=== PATIENT | female | born 1945 | race Caucasian/White ===

== ENCOUNTER 2019-04-20 11:22 | Emergency (ER) | payer MEDICARE ==
[~2019-04-20] VITALS: Ht 167.6 cm; Wt 134.2 kg
[2019-04-20 12:14] LABS: BASO % 0 % (0-3); EOS % 0 % (0-3); HEMOGLOBIN 11.2 g/dL (12.0-15.5); LYMPH # 0.8 x10^3/uL (1.0-4.8); LYMPH % 6 % (24-48); MEAN CORPUSCULAR HEMOGLOBIN 30 pg (25-35); MEAN CORPUSCULAR HGB CONC 31 g/dL (31-37); MEAN CORPUSCULAR VOLUME 96 fL (79-100); MONO # 0.9 x10^3/uL (0.0-1.1); MONO % 7 % (0-9); NEUT # 11.3 x10^3uL (1.8-7.7); NEUT % 86 % (31-73); PLATELET COUNT 316 x10^3/uL (140-400); RED BLOOD COUNT 3.75 x10^6/uL (3.50-5.40); RED CELL DISTRIBUTION WIDTH 14.9 % (11.5-14.5); WHITE BLOOD COUNT 13.1 x10^3/uL (4.0-11.0)
[2019-04-20] MEDS ORDERED: DEXAMETHASONE SOD PHOS 10 MG/ML VIAL IV ONE (12:15)
--- NOTE | 2019-04-20 12:16 | EKG ---
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
[2019-04-20 12:37] LABS: ALBUMIN 3.1 g/dL (3.4-5.0); ALBUMIN/GLOBULIN RATIO 0.7 (1.0-1.7); C REACTIVE PROTEIN 222.6 mg/L (0-3.3); CALCIUM 9.6 mg/dL (8.5-10.1); CREATININE 1.1 mg/dL (0.6-1.0); GFR 48.7; MAGNESIUM 1.9 mg/dL (1.8-2.4); POTASSIUM 3.3 mmol/L (3.5-5.1); TOTAL PROTEIN 7.4 g/dL (6.4-8.2)
--- NOTE | 2019-04-20 12:56 | RAD ---
Left lower extremity venous doppler ultrasound History: Left lower extremity pain and swelling Comparison: None Findings: Multiple grayscale, color, and duplex spectral analysis sonographic images were acquired of the left lower extremity veins to evaluate for the presence of DVT. There is normal phasicity. Normal compression, color-flow, and augmentation is demonstrated from the left common femoral to the popliteal veins. There is normal color flow of the proximal greater saphenous and profunda femoris veins. Left calf veins are not well-visualized on this exam reportedly due to patient's body habitus. There is a hypoechoic fluid collection in the left popliteal fossa about 4.3 x 2 x 3 cm. Impression: 1. There is no evidence of deep venous thrombosis from the left common femoral to the popliteal veins. 2. There is left popliteal fossa fluid collection/cyst. Electronically signed by: Sadi Hernández MD (04/20/2019 12:54 PM) [facility]
--- NOTE | 2019-04-20 13:08 | PHYS DOC ---
Past History Past Medical History: A-Fib, Arthritis, COPD, GERD, Hypertension, Other Past Surgical History: , Hysterectomy, Other Additional Past Surgical Histo: D&C; left elbow fx repair; left eye cataract Smoking: Quit Greater Than 1 Year Alcohol Use: None Drug Use: None Adult General Chief Complaint Chief Complaint: KNEE SWELLING HPI HPI 73-year-old female presents with report of left knee pain and swelling which is been ongoing for the past several days. Patient reports she was recently seen at [place] for same and was diagnosed with arthritis. Patient reports she's been taking hydrocodone for pain with some improvement. Reports today pain became worse. Patient reports she also had been noted to have a elevated INR at her previous visit. Patient reports she has been holding her Coumadin since. Reports she currently takes it secondary to atrial fibrillation. Patient reports she was seen by her PCP who is concerned about her elevated INR, continued pain to left knee, and low oxygenation at the office and therefore requested patient presented to the ER for further evaluation. Patient denies recent trauma. Denies fever or chills. Denies shortness of breath or chest pain. Review of Systems Review of Systems Constitutional: Denies fever or chills Eyes: Denies redness or eye pain HENT: Denies nasal congestion or sore throat Respiratory: Denies cough or shortness of breath Cardiovascular: Denies chest pain or palpitations GI: Denies abdominal pain, nausea, or vomiting : Denies dysuria or hematuria Musculoskeletal: Reports pain and swelling to left knee Integument: Denies rash or skin lesions Neurologic: Denies headache, focal weakness or sensory changes Complete systems were reviewed and found to be within normal limits, except as documented in this note. Current Medications Current Medications Current Medications Medications (Trade) Dose Ordered Sig/[facility] Start Time Stop Time Status Last Admin Dose Admin Dexamethasone Sodium Phosphate (Decadron) 10 mg 1X ONCE 04/20/19 12:15 04/20/19 12:16 DC 04/20/19 12:06 10 MG Fentanyl Citrate (Fentanyl 2ml Vial) 50 mcg 1X ONCE 04/20/19 12:15 04/20/19 12:16 DC 04/20/19 12:08 50 MCG Allergies Allergies Allergies Coded Allergies Type Severity Reaction Last Updated Verified No Known Drug Allergies 04/20/19 No Physical Exam Physical Exam Constitutional: Well developed, obese, uncomfortable, non-toxic appearance HENT: Normocephalic, atraumatic, oropharynx moist Eyes: PERRL, EOMI, conjunctiva normal, no discharge Neck: Normal range of motion, no tenderness, supple Cardiovascular: Heart rate normal, regular rhythm Lungs & Thorax: Bilateral breath sounds clear to auscultation, no wheezing Skin: Warm, dry, no erythema, no rash Extremities: Left knee tenderness on palpation and range of motion, no deformity, bilateral 1+ edema Neurologic: Alert and oriented X 3, no focal deficits noted Psychologic: Affect normal, judgement normal Current Patient Data Vital Signs Vital Signs Date Time Temp Pulse Resp B/P (MAP) Pulse Ox O2 Delivery O2 Flow Rate FiO2 04/20/19 12:17 81 17 144/75 (98) 97 Nasal Cannula 3.0 04/20/19 11:39 98.2 Lab Results Laboratory Tests Test 04/20/19 11:58 White Blood Count 13.1 x10^3/uL (4.0-11.0) H Red Blood Count 3.75 x10^6/uL (3.50-5.40) Hemoglobin 11.2 g/dL (12.0-15.5) L Hematocrit 36.0 % (36.0-47.0) Mean Corpuscular Volume 96 fL (79-100) Mean Corpuscular Hemoglobin 30 pg (25-35) Mean Corpuscular Hemoglobin Concent 31 g/dL (31-37) Red Cell Distribution Width 14.9 % (11.5-14.5) H Platelet Count 316 x10^3/uL (140-400) Neutrophils (%) (Auto) 86 % (31-73) H Lymphocytes (%) (Auto) 6 % (24-48) L Monocytes (%) (Auto) 7 % (0-9) Eosinophils (%) (Auto) 0 % (0-3) Basophils (%) (Auto) 0 % (0-3) Neutrophils # (Auto) 11.3 x10^3uL (1.8-7.7) H Lymphocytes # (Auto) 0.8 x10^3/uL (1.0-4.8) L Monocytes # (Auto) 0.9 x10^3/uL (0.0-1.1) Eosinophils # (Auto) 0.0 x10^3/uL (0.0-0.7) Basophils # (Auto) 0.0 x10^3/uL (0.0-0.2) Erythrocyte Sedimentation Rate Pending Prothrombin Time 35.1 SEC (9.4-11.4) H Prothrombin Time INR 3.4 (0.9-1.1) H Activated Partial Thromboplast Time 58 SEC (23-33) H D-Dimer (Jordyn) 0.60 mg/L (0.00-0.50) H Sodium Level 143 mmol/L (136-145) Potassium Level 3.3 mmol/L (3.5-5.1) L Chloride Level 100 mmol/L (98-107) Carbon Dioxide Level 36 mmol/L (21-32) H Anion Gap 7 (6-14) Blood Urea Nitrogen 21 mg/dL (7-20) H Creatinine 1.1 mg/dL (0.6-1.0) H Estimated GFR (Cockcroft-Gault) 48.7 BUN/Creatinine Ratio 19 (6-20) Glucose Level 126 mg/dL (70-99) H Calcium Level 9.6 mg/dL (8.5-10.1) Magnesium Level 1.9 mg/dL (1.8-2.4) Total Bilirubin 2.0 mg/dL (0.2-1.0) H Aspartate Amino Transferase (AST) 15 U/L (15-37) Alanine Aminotransferase (ALT) 12 U/L (14-59) L Alkaline Phosphatase 64 U/L (46-116) Creatine Kinase 41 U/L (26-192) Creatine Kinase MB (Mass) 0.7 ng/mL (0.0-3.6) Creatine Kinase MB Relative Index 1.7 % (0-4) Troponin I Quantitative < 0.017 ng/mL (0-0.055) C-Reactive Protein 222.6 mg/L (0-3.3) H HF-Mxb-X-Type Natriuretic Peptide 430 pg/mL (0-124) H Total Protein 7.4 g/dL (6.4-8.2) Albumin 3.1 g/dL (3.4-5.0) L Albumin/Globulin Ratio 0.7 (1.0-1.7) L EKG EKG @1211 NSR at 94bpm, wandering baseline with significant artifact, NO ST elevation, QRS 132ms, QT/QTc 342/433ms Radiology/Procedures Radiology/Procedures PROCEDURE: VENOUS LOWER EXTREMITY LEFT Left lower extremity venous doppler ultrasound History: Left lower extremity pain and swelling Comparison: None Findings: Multiple grayscale, color, and duplex spectral analysis sonographic images were acquired of the left lower extremity veins to evaluate for the presence of DVT. There is normal phasicity. Normal compression, color-flow, and augmentation is demonstrated from the left common femoral to the popliteal veins. There is normal color flow of the proximal greater saphenous and profunda femoris veins. Left calf veins are not well-visualized on this exam reportedly due to patient's body habitus. There is a hypoechoic fluid collection in the left popliteal fossa about 4.3 x 2 x 3 cm. Impression: 1. There is no evidence of deep venous thrombosis from the left common femoral to the popliteal veins. 2. There is left popliteal fossa fluid collection/cyst. Electronically signed by: Sadi Hernández MD (04/20/2019 12:54 PM) [facility] PROCEDURE: KNEE LEFT 3V Three-view left knee study Clinical indications: Left knee pain FINDINGS: No acute fracture or dislocation or lytic process is seen. There is severe joint space narrowing with [id number] interface and moderate subchondral sclerosis and mild spurring of the medial tibial femoral joint compartment. There is mild joint space narrowing and mild spurring of the lateral tibial femoral joint compartment. Chondrocalcinosis of the lateral meniscus is seen. There is mild degenerative spurring of the patellofemoral joint compartment. Evaluation for joint effusion is difficult since the lateral view is not truly lateral in position. IMPRESSION: No acute fracture. 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 Electronically signed by: Gama Davidson MD (04/20/2019 1:53 PM) [facility] PROCEDURE: CT ANGIOGRAPHY CHEST CT ANGIOGRAPHY CHEST INDICATION: Hypoxia, elevated d-dimer Comparison: None. TECHNIQUE: Following the uneventful administration of intravenous contrast, 75 cc Isovue-370, axial CT sections were obtained through the lungs and upper abdomen. Multiplanar reconstructions and MIP images were obtained. RS compliance statement: One or more of the following individualized dose reduction techniques were utilized for this examination: 1. Automated exposure control 2. Adjustment of the mA and/or kV according to patient size 3. Use of iterative reconstruction technique FINDINGS: Pulmonary vasculature: No evidence of pulmonary thromboembolic disease. Dilated pulmonary trunk measures 40 mm. Lungs and Airways: No pulmonary mass or consolidation. Scattered bandlike subsegmental atelectasis. Mosaic attenuation of the lung parenchyma. No abnormality of the central airways. Pleura: The pleural spaces are normal. Heart and Mediastinum: The visualized thyroid is normal in size and attenuation. No axillary or supraclavicular lymphadenopathy. No mediastinal, hilar or retrocrural lymphadenopathy. Cardiomegaly. No pericardial effusion. Coronary artery atherosclerotic disease. The great vessels of the thorax are normal. Abdomen: Cholelithiasis. Left renal cyst measuring 2.9 cm. Bones and Soft Tissues: The visualized bones and chest wall soft tissues are within normal limits. IMPRESSION: 1. No evidence of pulmonary thromboembolic disease. 2. Dilated pulmonary trunk, which can be seen with pulmonary hypertension. 3. Mosaic attenuation of the lung parenchyma, likely due to pulmonary hypertension or small airways disease. Electronically signed by: Sadi Boudreaux MD (04/20/2019 3:24 PM) [facility] Course & Med Decision Making Course & Med Decision Making Pertinent Labs and Imaging studies reviewed. (See chart for details) Obese female presents with report of left knee pain and swelling which is been ongoing for several days. Patient denies recent trauma. Reports had been seen recently at outside facility and been told she has significant arthritis of the knee. Patient reportedly also had had a elevated INR at that visit. PCP sent patient to the ED for further evaluation. Patient without deformity. X-ray obtained of knee which confirmed severe arthritis. Symptomatic treatment provided. Given patient's stature a venous Doppler was obtained which is negative for acute DVT but did note a Osborne cyst. Labs were also obtained and posted to chart. D-dimer elevated. CTA therefore obtained without acute process. Lonnie wrap applied to patient's left knee. Patient stable for discharge with outpatient follow-up with PCP/orthopedics. Orthopedic referral provided. Discussed findings and plan with patient and family, who acknowledge understanding and agreement. [place] Disclaimer Dragon Disclaimer This electronic medical record was generated, in whole or in part, using a voice recognition dictation system. Splinting Splinting : Location: left knee Pre-Made Type: Lonnie bandage Pre-Proc Neuro Vasc Exam: normal Post-Proc Neuro Vasc Exam: normal, unchanged from pre-exam Departure Departure: Impression: Primary Impression: Knee pain Additional Impression: Osteoarthritis Disposition: 01 HOME, SELF-CARE Condition: STABLE Referrals: BEN ANG MD (PCP) JO ANN MARQUES MD Patient Instructions: Knee Pain, [id number], Knee Wraps (Elastic Bandage) and RICE, Osteoarthritis Additional Instructions: Use your walker. Scripts Prednisone (PREDNISONE) 20 Mg Tablet 2 TAB PO DAILY for arthritis, #8 TAB Start this medication tomorrow, Saturday04/21/19 Prov: SHAHIDA WESLEY DO 04/20/19 Oxycodone Hcl/Acetaminophen (PERCOCET 5-325 MG TABLET ) 1 Each Tablet 0.5-1 TAB PO Q6HRS PRN for PAIN MDD 4 Tablet(s), #10 TAB 0 Refills Prov: SHAHIDA WESLEY DO 04/20/19 Problem Qualifiers Primary Impression: Knee pain Chronicity: acute Laterality: left Qualified Codes: M25.562 - Pain in left knee Additional Impression: Osteoarthritis Osteoarthritis location: knee Osteoarthritis type: unspecified Laterality: left Qualified Codes: M17.12 - Unilateral primary osteoarthritis, left knee SHAHIDA WESLEY DO Apr 20, 2019 13:08
[2019-04-20 13:25] LABS: SEDIMENTATION RATE 66 (0-25)
[2019-04-20] MEDS ORDERED: IV NORMAL SALINE 1,000ML 1,000 ML IV ONE (13:45)
--- NOTE | 2019-04-20 13:56 | RAD ---
Three-view left knee study Clinical indications: Left knee pain FINDINGS: No acute fracture or dislocation or lytic process is seen. There is severe joint space narrowing with [id number] interface and moderate subchondral sclerosis and mild spurring of the medial tibial femoral joint compartment. There is mild joint space narrowing and mild spurring of the lateral tibial femoral joint compartment. Chondrocalcinosis of the lateral meniscus is seen. There is mild degenerative spurring of the patellofemoral joint compartment. Evaluation for joint effusion is difficult since the lateral view is not truly lateral in position. IMPRESSION: No acute fracture. 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 Electronically signed by: Gama Davidson MD (04/20/2019 1:53 PM) [facility]
[2019-04-20] MEDS ORDERED: IOHEXOL 350 MG/ML 100 ML VIAL. IV ONE (14:00)
--- NOTE | 2019-04-20 16:41 | RAD ---
CT ANGIOGRAPHY CHEST INDICATION: Hypoxia, elevated d-dimer Comparison: None. TECHNIQUE: Following the uneventful administration of intravenous contrast, 75 cc Isovue-370, axial CT sections were obtained through the lungs and upper abdomen. Multiplanar reconstructions and MIP images were obtained. RS compliance statement: One or more of the following individualized dose reduction techniques were utilized for this examination: 1. Automated exposure control 2. Adjustment of the mA and/or kV according to patient size 3. Use of iterative reconstruction technique FINDINGS: Pulmonary vasculature: No evidence of pulmonary thromboembolic disease. Dilated pulmonary trunk measures 40 mm. Lungs and Airways: No pulmonary mass or consolidation. Scattered bandlike subsegmental atelectasis. Mosaic attenuation of the lung parenchyma. No abnormality of the central airways. Pleura: The pleural spaces are normal. Heart and Mediastinum: The visualized thyroid is normal in size and attenuation. No axillary or supraclavicular lymphadenopathy. No mediastinal, hilar or retrocrural lymphadenopathy. Cardiomegaly. No pericardial effusion. Coronary artery atherosclerotic disease. The great vessels of the thorax are normal. Abdomen: Cholelithiasis. Left renal cyst measuring 2.9 cm. Bones and Soft Tissues: The visualized bones and chest wall soft tissues are within normal limits. IMPRESSION: 1. No evidence of pulmonary thromboembolic disease. 2. Dilated pulmonary trunk, which can be seen with pulmonary hypertension. 3. Mosaic attenuation of the lung parenchyma, likely due to pulmonary hypertension or small airways disease. Electronically signed by: Sadi Boudreaux MD (04/20/2019 3:24 PM) [facility]
[2019-04-20] MEDS ORDERED: PRED20TA PO (17:12)
[2019-04-20] MEDS ORDERED: OXYC1TAB15 PO (17:12)
[2019-04-20 17:32] VITALS: BP 101/43
[2019-04-20] MEDS ORDERED: oxyCODONE/APAP 5/325 1 TAB TABLET PO ONE (17:45)
== END 2019-04-20 17:40 | disposition home or self-care (01) ==
LOC: ER 11:33
DX: M17.12 Unilateral primary osteoarthritis, left knee (principal); I48.91 Unspecified atrial fibrillation; R79.1 Abnormal coagulation profile; J44.9 Chronic obstructive pulmonary disease, unspecified; K21.9 Gastro-esophageal reflux disease without esophagitis; I10 Essential (primary) hypertension; Z87.891 Personal history of nicotine dependence
CPT/HCPCS: 36415; 71275; 73562; 80053; 82553; 83735; 83880; 84484; 85025; 85379; 85610; 85651; 85730; 86140; 93005; 93971; 96374; 96375; 96376; 99285; J1100; J3010; Q9967; J7030

== ENCOUNTER 2020-03-10 07:32 | Emergency (ER) | payer MEDICARE, OTHER ==
[~2020-03-10] VITALS: Ht 167.6 cm; Wt 134.2 kg
[~2020-03-10 07:32] MED LIST: OXYC1TAB15 PO; PRED20TA PO
[2020-03-10] MEDS ORDERED: DIPH,PERTUSS(ACELL),TET VAC/PF 0.5 ML SYRINGE. VAX IM ONE (07:45)
--- NOTE | 2020-03-10 07:49 | PHYS DOC ---
Past History Past Medical History: A-Fib, Arthritis, COPD, GERD, Hypertension, Other Past Surgical History: , Hysterectomy, Other Additional Past Surgical Histo: D&C; left elbow fx repair; left eye cataract Smoking: Quit Greater Than 1 Year Alcohol Use: None Drug Use: None Adult General Chief Complaint Chief Complaint: MECHANICAL FALL HPI HPI Patient is a 74-year-old female who presents status post fall. Patient had an unwitnessed mechanical fall at her assisted, states she was ambulating from bathroom back to living room area with her walker when she tripped over her feet falling forwards, hit her left knee, then subsequently hit face. senior living staff found patient shortly after fall and immediately called EMS for transport to our facility for evaluation. Per EMS report, patient alert and oriented, vitals grossly unremarkable, patient reporting facial pain at site of laceration above left orbit and right jaw only. Currently takes warfarin daily for anticoagulation for atrial fibrillation. Patient has history of falls in the past with most recent being 2 days ago, all are mechanical in nature due to chronic deconditioning and gross obesity when using her walker. Review of Systems Review of Systems Fourteen body systems of review of systems have been reviewed. See HPI for pertinent positives and negative responses, other ward all other systems are negative, non-pertinent or non-contributory Allergies Allergies Allergies Coded Allergies Type Severity Reaction Last Updated Verified No Known Drug Allergies 04/20/19 No Physical Exam Physical Exam Constitutional: Pt is oriented to person, place, and time. Pt appears well- developed and well-nourished. Obese HENT: Head: Normocephalic. Mouth/Throat: Oropharynx is clear and moist. No hematomas or abrasions to face or scalp. X2 lacerations were reported, x1 crescent-shaped laceration to left superior orbit above the eyebrow 3.5 cm without any obvious foreign body, x1 vertical incision noted to inferior lateral portion of chin 2 cm in length without obvious foreign body. Hemostasis achieved prior to arrival OP clear, no blood, no malocclusion, dentition intact Nares clear, no nasal septal hematoma TMs clear, no hemotympanum Midface stable Eyes: Conjunctivae and EOM are normal. Pupils are equal, round, and reactive to light. Neck: C-spine midline nontender, no step-offs Cardiovascular: Normal rate, irregular rhythm and normal heart sounds. Pulmonary/Chest: Effort normal and breath sounds normal. No respiratory distress. No wheezes. CTA bilaterally Abdominal: Soft. Bowel sounds are normal. Pt exhibits no distension. There is no tenderness. Musculoskeletal: Bony tenderness to left knee without any palpable abnormalities without any other bony tenderness past baseline health, no deformities, full ROM extremities Chest wall stable Pelvis stable and non-tender No vertebral TTP and spine without stepoffs Neurological: Pt is alert and oriented to person, place, and time. Moving all extremities willfully, able to wiggle all fingers and toes Alert and oriented x 3 Sensation grossly intact Skin: Skin is warm and dry. No abrasions, no lacerations Psychiatric: Behavior is appropriate for situation Nursing note and vitals reviewed. EKG EKG EKG ordered and interpreted by myself at 0803 hrs. overall, a poor EKG due to artifact due to underlying patient tremor and movement throughout, at present appears as atrial fibrillation with ventricular rate at 94 bpm, prolonged QTC of 501 otherwise other intervals unmeasurable, no obvious acute ischemic findings, no STEMI. Radiology/Procedures Radiology/Procedures PROCEDURE: CT HEAD AND CERVICAL SPINE WO CT HEAD AND CERVICAL SPINE WO History: Reason: fall, chin and left orbit lac / Spl. Instructions: / History: . Pain. Comparison: None. Technique: Noncontrast CT imaging was performed of the head and cervical spine. Coronal and sagittal reconstructions were performed. Exposure: One or more of the following individualized dose reduction techniques were utilized for this examination: 1. Automated exposure control 2. Adjustment of the mA and/or kV according to patient size 3. Use of iterative reconstruction technique. Findings: Head CT: No intracranial hemorrhage. No mass effect. No hydrocephalus. Moderate foci of decreased attenuation within the hemispheric white matter, most often due to chronic microvascular ischemia. Chronic appearing right caudate head lacunar infarct. Left supraorbital soft tissue swelling and laceration with subcutaneous gas. Imaged orbits are unremarkable. Complete opacification of the left frontal sinus and left anterior ethmoid sinuses. Increased density within the opacified sinuses, may indicate inspissated secretions or fungal colonization. Bilateral inferior maxillary sinus mucous retention cysts or polyps. Mastoid air cells are clear. No acute calvarial fracture. Cervical spine CT: Mild motion degradation. Grade 1 anterolisthesis C3 on C4, C4 and C5 and C7 on T1. Normal vertebral body height. No fracture. Moderate multilevel degenerative disc changes most prominent C5-C6 and C6-C7. Multilevel facet arthropathy. Multilevel neuroforaminal narrowing. Mild canal narrowing C5-C6. Multinodular thyroid with largest right inferior thyroid nodule measuring 3.1 x 2.7 cm. Impression: Head CT: 1. No acute intracranial abnormality. 2. Left supraorbital scalp soft tissue injury. 3. Moderate sequelae of chronic microvascular ischemia. 4. Chronic appearing right caudate head lacunar infarct. Recommend comparison with prior imaging studies. If persistent clinical concern for acute ischemia, MRI can better evaluate. 5. Left frontal and ethmoid sinus opacification. Cervical spine CT: 1. No acute fracture or subluxation of the cervical spine. 2. Moderate multilevel cervical spondylosis. 3. Multinodular thyroid. Recommend ultrasound to further evaluate. Electronically signed by: Elie Contreras DO (03/10/2020 10:15 AM) [id number] PROCEDURE: KNEE LEFT 3V KNEE LEFT 3V History: Reason: fall / Spl. Instructions: / History: . Pain. Technique: 3 views left knee. Comparison: April 20, 2019 Findings: Normal alignment. No fracture. Tricompartment knee degenerative changes most advanced within the medial compartment. Chondrocalcinosis. Small knee joint effusion. Anterior knee soft tissue swelling. Impression: 1. No acute osseous abnormality. 2. 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 3. Chondrocalcinosis. Electronically signed by: Elie Contreras DO (03/10/2020 10:01 AM) [id number] Course & Med Decision Making Course & Med Decision Making Patient seen on immediate ER arrival from EMS ABCs grossly unremarkable, patient at baseline home oxygen requirements of 4 L nasal cannula Comprehensive history and physical exam obtained, subsequent diagnostic studies ordered IV access obtained, a total of 50 mcg fentanyl administered for pain, tetanus updated today as it is out of date X2 lacerations to left orbit and right chin repaired in ER without complications Diagnostic work-up reviewed in depth with patient. Discussed findings of supratherapeutic INR at 3.2 with goal 2.0-3.0. Also discussed imaging findings that were negative for any acute abnormality but did show multinodular thyroid I discussed that this might be an acute presentation of more concerning pathology such as future brain bleed. I discussed utility in medical observation for continued neuro checks; however, patient reports having good support at her current assisted facility Patient wanting to go home, at this time I feel this is safe as she is going back to assisted community with staff who can: Perform neuro checks and she has close access to PCP for follow-up within upcoming 3-5 days for repeat INR check, suture removal, and follow-up for outpatient thyroid ultrasound Strict return precautions were discussed with patient at length, all questions and concerns addressed prior to ER departure back to assisted in stable condition Dragon Disclaimer Dragon Disclaimer This electronic medical record was generated, in whole or in part, using a voice recognition dictation system. Laceration Repair Lac Repair Indication: Lacerations to left superior orbit and right inferior chin. Consent was obtained verbally from patient Procedure: The patient was placed in the appropriate position and x2 laceration sites were copiously irrigated with normal saline and cleansed with topical alcohol wipes. Each site was anesthetized with 4 mL 1% lidocaine. Each sites were evaluated extensively without any concern for deep muscle body/tendon/nerve involvement. Skin borders approximated. 3.0 Ethilon was used for closure of right chin laceration. 4.0 Ethilon was used for closure of left superior orbit laceration. X3 simple sutures were applied to right chin laceration and a total of x6 simple sutures were applied to left superior orbit laceration. Both wounds were then dressed per protocol. Total repaired wound length: First laceration to left superior orbit was cre scent-shaped totaling 3.5 cm in length. Second laceration to right inferior chin totaled 2 cm in laceration Other Items: None The patient tolerated the procedure well without any reported complications or noted complications Departure Departure: Impression: Primary Impression: Closed head injury without loss of consciousness Additional Impressions: Fall Laceration of head Supratherapeutic INR Atrial fibrillation Warfarin anticoagulation Anxiety Thyroid nodule Disposition: HOME/RESIDENCE PRIOR TO ADM Condition: STABLE Referrals: BEN ANG MD (PCP) Patient Instructions: Fall Prevention and Home Safety Justification of Admission: Justification of Admission: Justification of Admission Dx: N/A Problem Qualifiers TALIA ALEX DO Mar 10, 2020 07:49
--- NOTE | 2020-03-10 08:14 | EKG ---
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
[2020-03-10 08:34] LABS: BASO % 0 % (0-3); EOS # 0.2 x10^3/uL (0.0-0.7); EOS % 2 % (0-3); HEMATOCRIT 37.8 % (36.0-47.0); HEMOGLOBIN 11.9 g/dL (12.0-15.5); LYMPH % 12 % (24-48); MEAN CORPUSCULAR HEMOGLOBIN 31 pg (25-35); MEAN CORPUSCULAR HGB CONC 32 g/dL (31-37); MEAN CORPUSCULAR VOLUME 97 fL (79-100); MONO # 0.5 x10^3/uL (0.0-1.1); MONO % 6 % (0-9); NEUT # 6.9 x10^3uL (1.8-7.7); NEUT % 80 % (31-73); PLATELET COUNT 200 x10^3/uL (140-400); RED BLOOD COUNT 3.89 x10^6/uL (3.50-5.40); RED CELL DISTRIBUTION WIDTH 15.4 % (11.5-14.5); WHITE BLOOD COUNT 8.6 x10^3/uL (4.0-11.0)
[2020-03-10 08:48] LABS: CALCIUM 9.6 mg/dL (8.5-10.1); CREATININE 1.4 mg/dL (0.6-1.0); GFR 36.8; POTASSIUM 3.4 mmol/L (3.5-5.1)
[2020-03-10 08:53] LABS: ALBUMIN 2.9 g/dL (3.4-5.0); ALBUMIN/GLOBULIN RATIO 0.6 (1.0-1.7); TOTAL BILIRUBIN 0.9 mg/dL (0.2-1.0); TOTAL PROTEIN 7.4 g/dL (6.4-8.2)
[2020-03-10] MEDS ORDERED: busPIRone 5 MG TABLET. ONE (10:00)
--- NOTE | 2020-03-10 10:04 | RAD ---
KNEE LEFT 3V History: Reason: fall / Spl. Instructions: / History: . Pain. Technique: 3 views left knee. Comparison: April 20, 2019 Findings: Normal alignment. No fracture. Tricompartment knee degenerative changes most advanced within the medial compartment. Chondrocalcinosis. Small knee joint effusion. Anterior knee soft tissue swelling. Impression: 1. No acute osseous abnormality. 2. 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 3. Chondrocalcinosis. Electronically signed by: Elie Contreras DO (03/10/2020 10:01 AM) [id number]
[2020-03-10] MEDS ORDERED: busPIRone 5 MG TABLET. PO ONE (10:10)
--- NOTE | 2020-03-10 10:18 | RAD ---
CT HEAD AND CERVICAL SPINE WO History: Reason: fall, chin and left orbit lac / Spl. Instructions: / History: . Pain. Comparison: None. Technique: Noncontrast CT imaging was performed of the head and cervical spine. Coronal and sagittal reconstructions were performed. Exposure: One or more of the following individualized dose reduction techniques were utilized for this examination: 1. Automated exposure control 2. Adjustment of the mA and/or kV according to patient size 3. Use of iterative reconstruction technique. Findings: Head CT: No intracranial hemorrhage. No mass effect. No hydrocephalus. Moderate foci of decreased attenuation within the hemispheric white matter, most often due to chronic microvascular ischemia. Chronic appearing right caudate head lacunar infarct. Left supraorbital soft tissue swelling and laceration with subcutaneous gas. Imaged orbits are unremarkable. Complete opacification of the left frontal sinus and left anterior ethmoid sinuses. Increased density within the opacified sinuses, may indicate inspissated secretions or fungal colonization. Bilateral inferior maxillary sinus mucous retention cysts or polyps. Mastoid air cells are clear. No acute calvarial fracture. Cervical spine CT: Mild motion degradation. Grade 1 anterolisthesis C3 on C4, C4 and C5 and C7 on T1. Normal vertebral body height. No fracture. Moderate multilevel degenerative disc changes most prominent C5-C6 and C6-C7. Multilevel facet arthropathy. Multilevel neuroforaminal narrowing. Mild canal narrowing C5-C6. Multinodular thyroid with largest right inferior thyroid nodule measuring 3.1 x 2.7 cm. Impression: Head CT: 1. No acute intracranial abnormality. 2. Left supraorbital scalp soft tissue injury. 3. Moderate sequelae of chronic microvascular ischemia. 4. Chronic appearing right caudate head lacunar infarct. Recommend comparison with prior imaging studies. If persistent clinical concern for acute ischemia, MRI can better evaluate. 5. Left frontal and ethmoid sinus opacification. Cervical spine CT: 1. No acute fracture or subluxation of the cervical spine. 2. Moderate multilevel cervical spondylosis. 3. Multinodular thyroid. Recommend ultrasound to further evaluate. Electronically signed by: Elie Contreras DO (03/10/2020 10:15 AM) [id number]
[2020-03-10 10:55] VITALS: BP 116/62
== END 2020-03-10 11:27 | disposition home or self-care (01) ==
LOC: ER 07:32
DX: S05.42XA Penetrating wound of orbit with or without foreign body, left eye, initial encounter (principal); S01.81XA Laceration without foreign body of other part of head, initial encounter; S09.90XA Unspecified injury of head, initial encounter; I48.91 Unspecified atrial fibrillation; E04.1 Nontoxic single thyroid nodule; M19.90 Unspecified osteoarthritis, unspecified site; J44.9 Chronic obstructive pulmonary disease, unspecified; K21.9 Gastro-esophageal reflux disease without esophagitis; I10 Essential (primary) hypertension; Z87.891 Personal history of nicotine dependence; Z79.01 Long term (current) use of anticoagulants; W01.0XXA Fall on same level from slipping, tripping and stumbling without subsequent striking against object, initial encounter; Y93.01 Activity, walking, marching and hiking; Y92.89 Other specified places as the place of occurrence of the external cause; Y99.8 Other external cause status
CPT/HCPCS: 12013; 36415; 70450; 72125; 73562; 80053; 84443; 84484; 85025; 85610; 85730; 90471; 90715; 93005; 96374; 99285; J3010

== ENCOUNTER 2020-06-07 14:49 | Emergency (ER) | payer MEDICARE, OTHER ==
[~2020-06-07] VITALS: Ht 167.6 cm; Wt 134.2 kg
[2020-06-07] MEDS ORDERED: 0.9 % SODIUM CHLORIDE 10 ML DISP.SYRIN. IV PRN (15:00)
[2020-06-07] MEDS ORDERED: HALOPERIDOL LACT 5 MG/ML VIAL. IM ONE (15:00)
[2020-06-07] MEDS ORDERED: HALOPERIDOL LACT 5 MG/ML VIAL. ONE (15:01)
[2020-06-07] MEDS ORDERED: IV NORMAL SALINE 1,000ML 1,000 ML IV ONE (15:15)
[2020-06-07] MEDS ORDERED: IOHEXOL 350 MG/ML 100 ML VIAL. IV ONE (15:15)
[2020-06-07] MEDS ORDERED: ACETAMINOPHEN 650 MG SUPP.RECT. PR ONE (15:15)
[2020-06-07] MEDS ORDERED: IV NORMAL SALINE 100ML 100 ML ONE (15:22)
[2020-06-07 15:24] LABS: BASO # 0.1 x10^3/uL (0.0-0.2); BASO % 1 % (0-3); EOS % 0 % (0-3); HEMATOCRIT 39.7 % (36.0-47.0); HEMOGLOBIN 12.2 g/dL (12.0-15.5); LYMPH # 1.4 x10^3/uL (1.0-4.8); LYMPH % 8 % (24-48); MEAN CORPUSCULAR HEMOGLOBIN 30 pg (25-35); MEAN CORPUSCULAR HGB CONC 31 g/dL (31-37); MEAN CORPUSCULAR VOLUME 98 fL (79-100); MONO # 0.4 x10^3/uL (0.0-1.1); MONO % 2 % (0-9); NEUT # 14.4 x10^3uL (1.8-7.7); NEUT % 89 % (31-73); PLATELET COUNT 265 x10^3/uL (140-400); RED BLOOD COUNT 4.06 x10^6/uL (3.50-5.40); RED CELL DISTRIBUTION WIDTH 15.5 % (11.5-14.5); WHITE BLOOD COUNT 16.2 x10^3/uL (4.0-11.0)
[2020-06-07 15:32] LABS: CALCIUM 9.6 mg/dL (8.5-10.1); CREATININE 1.8 mg/dL (0.6-1.0); GFR 27.5; POTASSIUM 4.2 mmol/L (3.5-5.1)
[2020-06-07 15:39] LABS: ALBUMIN 3.3 g/dL (3.4-5.0); ALBUMIN/GLOBULIN RATIO 0.8 (1.0-1.7); TOTAL BILIRUBIN 1.2 mg/dL (0.2-1.0); TOTAL PROTEIN 7.6 g/dL (6.4-8.2)
--- NOTE | 2020-06-07 16:22 | RAD ---
Exam: CT head INDICATION: Hypoxia, tachycardia TECHNIQUE: Sequential axial images through the head were obtained without the administration of IV contrast. Comparisons: 03/10/2020 FINDINGS: No focal parenchymal lesion or hemorrhage is identified. There is no midline shift or sulcal effacement. Patchy hypodensity in the periventricular white matter, similar prior exam. No acute vascular territory infarction is identified. Martel-white distinction is preserved. The ventricular system is within normal limits without compression hydrocephalus. The basal cisterns are well maintained. The visualized portions of the paranasal sinuses and mastoid air cells are well-pneumatized. No acute fractures. IMPRESSION: No acute intracranial abnormality. Exposure: One or more of the following in the visualized dose reduction techniques were utilized for this examination: 1. Automated exposure control 2. Adjustment of the MA and/or KV according to patient size Use of iterative of reconstructive technique Electronically signed by: Sindy Thornton MD (06/07/2020 4:19 PM) KAYLEE
--- NOTE | 2020-06-07 16:26 | RAD ---
EXAM: Chest, single view. HISTORY: Shortness of breath. COMPARISON: 04/20/2019 FINDINGS: A frontal view of the chest is obtained. There is diffuse infiltrate with superimposed left lower lobe partial consolidation. There is cardiomegaly. There are enlarged central pulmonary vessels likely due to chronic pulmonary artery hypertension. No pleural effusion or pneumothorax is seen. IMPRESSION: Diffuse interstitial infiltrate with left lower lobe partial consolidation. Cardiomegaly and enlarged central pulmonary vessels due to suspected chronic pulmonary artery hypertension. Electronically signed by: Prisca Pena MD (06/07/2020 4:23 PM) [facility]
--- NOTE | 2020-06-07 16:27 | PHYS DOC ---
Past History Past Medical History: A-Fib, Arthritis, COPD, GERD, Hypertension, Other Past Surgical History: , Hysterectomy, Other Additional Past Surgical Histo: D&C; left elbow fx repair; left eye cataract Smoking: Quit Greater Than 1 Year Alcohol Use: None Drug Use: None Adult General Chief Complaint Chief Complaint: ALTERED MENTAL STATUS [facility] Patient is 74-year-old female with past medical history of COPD and atrial fibrillation who presents to the emergency room with altered mental status and hypoxia. According to EMS report patient has been going downhill for the last week that became altered around noon today. She typically is alert and oriented x4. She is unable to provide any history at this time. Review of Systems Review of Systems Complete ROS is negative unless otherwise documented in HPI Current Medications Current Medications Current Medications Medications (Trade) Dose Ordered Sig/Jessie Start Time Stop Time Status Last Admin Dose Admin Acetaminophen (Tylenol Supp) 650 mg 1X ONCE 06/07/20 15:15 06/07/20 15:16 DC 06/07/20 15:15 650 MG Ceftriaxone Sodium 2 gm/ Sodium Chloride 100 ml @ 200 mls/hr 1X ONCE 06/07/20 15:00 06/07/20 15:29 DC 06/07/20 15:00 200 MLS/HR Ceftriaxone Sodium (Rocephin) 2 gm STK-MED ONCE 06/07/20 15:22 06/07/20 15:22 DC Haloperidol Lactate (Haldol) 5 mg STK-MED ONCE 06/07/20 15:01 06/07/20 15:01 DC Iohexol (Omnipaque 350 Mg/ml) 100 ml 1X ONCE 06/07/20 15:15 06/07/20 15:16 DC Sodium Chloride 100 ml @ As Directed STK-MED ONCE 06/07/20 15:22 06/07/20 15:22 DC Sodium Chloride (Normal Saline Flush) 10 ml QSHIFT PRN 06/07/20 15:00 Allergies Allergies Allergies Coded Allergies Type Severity Reaction Last Updated Verified No Known Drug Allergies 04/20/19 No Physical Exam Physical Exam General: Awake, alert, toxic appearing, altered, rigors HEENT: Atraumatic, EOMI, PERRL, airway patent, dry oral mucosa Neck: Supple, trachea midline Respiratory: increased work of breathing, tachypneic, decreased breath sounds CV: tachycardic, no murmur, cap refill <2 GI: Soft, nondistended, nontender, no masses MSK: No obvious deformities Skin: Warm, multiple bruises, diaphoretic Neuro: A&O x1, speech NL, sensory and motor grossly intact, no focal deficits Psych: anxious Current Patient Data Vital Signs Vital Signs Date Time Temp Pulse Resp B/P (MAP) Pulse Ox O2 Delivery O2 Flow Rate FiO2 06/07/20 16:09 122 24 131/76 (94) 98 NonRebreather Mask 15.0 06/07/20 15:30 104.0 Lab Results Laboratory Tests Test 06/07/20 15:08 White Blood Count 16.2 x10^3/uL (4.0-11.0) H Red Blood Count 4.06 x10^6/uL (3.50-5.40) Hemoglobin 12.2 g/dL (12.0-15.5) Hematocrit 39.7 % (36.0-47.0) Mean Corpuscular Volume 98 fL (79-100) Mean Corpuscular Hemoglobin 30 pg (25-35) Mean Corpuscular Hemoglobin Concent 31 g/dL (31-37) Red Cell Distribution Width 15.5 % (11.5-14.5) H Platelet Count 265 x10^3/uL (140-400) Neutrophils (%) (Auto) 89 % (31-73) H Lymphocytes (%) (Auto) 8 % (24-48) L Monocytes (%) (Auto) 2 % (0-9) Eosinophils (%) (Auto) 0 % (0-3) Basophils (%) (Auto) 1 % (0-3) Neutrophils # (Auto) 14.4 x10^3uL (1.8-7.7) H Lymphocytes # (Auto) 1.4 x10^3/uL (1.0-4.8) Monocytes # (Auto) 0.4 x10^3/uL (0.0-1.1) Eosinophils # (Auto) 0.0 x10^3/uL (0.0-0.7) Basophils # (Auto) 0.1 x10^3/uL (0.0-0.2) Platelet Estimate Pending Sodium Level 138 mmol/L (136-145) Potassium Level 4.2 mmol/L (3.5-5.1) Chloride Level 97 mmol/L (98-107) L Carbon Dioxide Level 39 mmol/L (21-32) H Anion Gap 2 (6-14) L Blood Urea Nitrogen 21 mg/dL (7-20) H Creatinine 1.8 mg/dL (0.6-1.0) H Estimated GFR (Cockcroft-Gault) 27.5 BUN/Creatinine Ratio 12 (6-20) Glucose Level 191 mg/dL (70-99) H Lactic Acid Level 4.3 mmol/L (0.4-2.0) *H Calcium Level 9.6 mg/dL (8.5-10.1) Total Bilirubin 1.2 mg/dL (0.2-1.0) H Aspartate Amino Transferase (AST) 20 U/L (15-37) Alanine Aminotransferase (ALT) 15 U/L (14-59) Alkaline Phosphatase 122 U/L (46-116) H Creatine Kinase 49 U/L (26-192) Troponin I Quantitative 0.022 ng/mL (0-0.055) Total Protein 7.6 g/dL (6.4-8.2) Albumin 3.3 g/dL (3.4-5.0) L Albumin/Globulin Ratio 0.8 (1.0-1.7) L EKG EKG [] Radiology/Procedures Radiology/Procedures [] Heart Score Risk Factors: Risk Factors: DM, Current or recent (<one month) smoker, HTN, HLP, family history of CAD, obesity. Risk Scores: Risk Factors: DM, Current or recent (<one month) smoker, HTN, HLP, family history of CAD, obesity. Course & Med Decision Making Course & Med Decision Making Pertinent Labs and Imaging studies reviewed. (See chart for details) Patient presents to the ED c/o altered mental status.Upon arrival, patient meets SIRs criteria and their presentation is concerning for possible sepsis. Code sepsis was set off in triage. Sepsis work up including CBC, BMP, CXR, UA, blood cx were ordered. Patient was given antibiotics after cx were drawn. At this time patient does not show signs of shock. She does have an elevated lactic which is likely due from her significant hypoxia prior to arrival. At this time there is concern for coronavirus so we will be judicial with fluids. Patient was discussed with Dr. Tucker who will admit the patient to [place]. [place] Disclaimer Dragon Disclaimer This electronic medical record was generated, in whole or in part, using a voice recognition dictation system. Critical Care Note Comments Critical Care: Authorized and Performed by: Lenora Ambriz MD Total critical care time: approximately 60 minutes Due to a high probability of clinically significant, life threatening deterioration, the patient required my highest level of preparedness to intervene emergently and I personally spent this critical care time directly and personally managing the patient. This critical care time included obtaining a history; examining the patient; pulse oximetry; ventilator management if necessary; ordering and review of studies; arranging urgent treatment with development of a management plan; evaluation of patient's response to treatment; frequent reassessment; discussion with patient/family; and, discussions with other providers. This critical care time was performed to assess and manage the high probability of imminent, life-threatening deterioration that could result in multi-organ failure. It was exclusive of separately billable procedures and treating other patients and teaching time. Please see MDM section and the rest of the note for further information on patient assessment and treatment. Departure Departure: Impression: Primary Impression: Respiratory failure, acute Disposition: 02 DC/TRF OTHER SHORT TERM HOS Condition: IMPROVED Referrals: SIN MEDELLIN DO (PCP) LENORA AMBRIZ MD Jun 07, 2020 16:27
--- NOTE | 2020-06-07 16:28 | RAD ---
Exam: CT of chest without contrast INDICATION: Hypoxia, tachycardia TECHNIQUE: Sequential axial images through the chest obtained without IV contrast. Sagittal and coronal reformatted images were reconstructed from the axial data and reviewed. Comparisons: 04/20/2019 FINDINGS: 2.6 cm nodule in the right lobe of the thyroid gland. No enlarged mediastinal lymph nodes are identified. Heart size is normal. Mild coronary artery calcifications. Thoracic aorta has a normal course and caliber. Pulmonary artery is not enlarged. Airways are patent. No consolidation or pneumothorax. Strandy opacities at the dependent portion lungs likely representing atelectasis. A 1.3 cm nodule in the lingula series 2 image 37. No pleural effusion or thickening. Visualized upper abdomen is unremarkable. No suspicious osseous lesions or acute fractures. IMPRESSION: 1. Extensive bilateral linear bandlike opacities likely related to atelectasis or scarring. 2. A 1.2 cm nodule in the lingula. This appears similar when compared to the prior exam in 2019. Continued follow-up imaging in 6-12 months is recommended to reassess. Exposure: One or more of the following in the visualized dose reduction techniques were utilized for this examination: 1. Automated exposure control 2. Adjustment of the MA and/or KV according to patient size 3. Use of iterative of reconstructive technique Electronically signed by: Sindy Thornton MD (06/07/2020 4:25 PM) [facility]
[2020-06-07 18:48] VITALS: BP 121/65
[2020-06-07 20:26] LABS: % LYMPHS 4 % (24-48); % MONOS 1 % (0-10); % SEGS 95 % (35-66); PLT ESTIMATE ADEQUATE (ADEQUATE)
[2020-06-07 20:27] LABS: STOMATOCYTES MOD
== END 2020-06-07 19:53 | disposition short-term general hospital (02) ==
LOC: ER 14:49
DX: J96.00 Acute respiratory failure, unspecified whether with hypoxia or hypercapnia (principal); R41.82 Altered mental status, unspecified; I48.91 Unspecified atrial fibrillation; J44.9 Chronic obstructive pulmonary disease, unspecified; K21.9 Gastro-esophageal reflux disease without esophagitis; I10 Essential (primary) hypertension; M19.90 Unspecified osteoarthritis, unspecified site; Z20.828 Contact with and (suspected) exposure to other viral communicable diseases; Z87.891 Personal history of nicotine dependence
CPT/HCPCS: 36415; 70450; 71045; 71250; 80053; 82550; 83605; 84484; 85007; 85025; 87040; 87205; 96365; 96372; 99291; C9803; J0696; J1630; J7030; U0003

== ENCOUNTER 2021-06-29 07:49 | Inpatient (IN) | payer MEDICARE, OTHER ==
[~2021-06-29] VITALS: Ht 170.2 cm; Wt 130.0 kg
--- NOTE | 2021-06-29 08:06 | PHYS DOC ---
Past History Past Medical History: A-Fib, Arthritis, COPD, GERD, Hypertension, Other (KAYDEN CARRILLO MD) Past Surgical History: , Hysterectomy, Other Additional Past Surgical Histo: D&C; left elbow fx repair; left eye cataract (KAYDEN CARRILLO MD) Smoking: Quit Greater Than 1 Year Alcohol Use: None Drug Use: None (KAYDEN CARRILLO MD) General Adult HPI: HPI: Patient is a 76-year-old female brought in by EMS from nursing rehab for hypoxia. Patient has a history of COPD. Patient was satting in the 70s at the facility, is normally on about 3 L nasal cannula. Was placed on 6 L nasal cannula by EMS because patient was refusing a mask due to her claustrophobia. Patient states she has had a productive cough and symptoms started about 6 hours ago. Has had her Covid vaccines and booster (KAYDEN CARRILLO MD) Review of Systems: Review of Systems: All other systems within normal limits except for as noted in the HPI (KAYDEN CARRILLO MD) Allergies: Allergies: Allergies Coded Allergies Type Severity Reaction Last Updated Verified No Known Drug Allergies 04/20/19 No (KAYDEN CARRILLO MD) Physical Exam: PE: Constitutional: Well developed, well nourished, no acute distress, non-toxic appearance. [] HENT: Normocephalic, atraumatic, bilateral external ears normal, nose normal. [] Eyes: PERRLA, conjunctiva normal, no discharge. [] Neck: No rigidity, supple, no stridor. [] Cardiovascular: Regular rate and rhythm, brisk cap refill [] Lungs & Thorax: Non labored symmetric respirations, no tachypnea or respiratory distress [] Abdomen: Soft, nondistended. Skin: Warm, dry, no erythema, no rash. [] Back: Unremarkable Extremities: No deformities, range of motion grossly intact, bilateral lower extremity edema [] Neurologic: Alert and oriented X 3, no focal deficits noted. [] Psychologic: Affect normal, judgement normal, mood normal. [] (KAYDEN CARRILLO MD) EKG: EKG: Irregular rhythm, heart rate 105, left axis deviation, no STEMI [] (KAYDEN CARRILLO MD) Radiology/Procedures: Radiology/Procedures: [address] [id number] IMAGING REPORT Signed PATIENT: BERNARDO ARELLANO ACCOUNT: [id number] : 1945 LOCATION: ER AGE: 76 SEX: F EXAM STATUS: REG ER ORD. PHYSICIAN: KAYDEN CARRILLO MD REASON: pna PROCEDURE: CHEST AP ONLY EXAM: Chest, single view. HISTORY: Pneumonia. COMPARISON: 06/07/2020 FINDINGS: A frontal view of the chest is obtained. There has been interval increase in right lower lobe infiltrate. There is stable left lower lobe infiltrate and bilateral upper lobe linear atelectasis. There is cardiomegaly. There is a suspected small left pleural effusion. There is no pneumothorax. IMPRESSION: 1. Stable left and increased right lower lobe interstitial infiltrate. 2. Stable suspected small left pleural effusion. Electronically signed by: Prisca Marie MD (06/29/2021 8:17 AM) [id number] DICTATED AND SIGNED BY: PRISCA MARIE MD DATE: 06/29/21815 CC: KAYDEN CARRILLO MD; SIN MEDELLIN DO ~MTH0 0 [] (KAYDEN CARRILLO MD) Heart Score: C/O Chest Pain: No HEART Score for Chest Pain: HEART Score for Chest Pain Response (Comments) Value History Slighlty/Non-Suspicious 0 ECG Nonspecific Repolarizatio 1 Age > 65 2 Risk Factors >3 Risk Factors or Hx CAD 2 Troponin < Normal Limit 0 Total 5 Risk Factors: Risk Factors: DM, Current or recent (<one month) smoker, HTN, HLP, family history of CAD, obesity. Risk Scores: Score 0 - 3: 2.5% MACE over next 6 weeks - Discharge Home Score 4 - 6: 20.3% MACE over next 6 weeks - Admit for Clinical Observation Score 7 - 10: 72.7% MACE over next 6 weeks - Early Invasive Strategies (KAYDEN CARRILLO MD) Course & Med Decision Making: Course & Med Decision Making Pertinent Labs and Imaging studies reviewed. (See chart for details) Patient still pending bed at [facility] at shift change. Patient not doing better on repeat VBG this shift. Pending x-ray to reevaluate. Change vent settings to an CARITO ratio of 1:3, decreased from 20-16, IPAP at 20. [] (KAYDEN CARRILLO MD) Course & Med Decision Making See Dr. Carrillo chart for details on this pt. before shift change. Multiple calls through out [facility] no beds available through the night of 06/29 through 06/30. No beds available. (ELIEL MATHEW MD) Dragon Disclaimer: Dragon Disclaimer: This electronic medical record was generated, in whole or in part, using a voice recognition dictation system. (KAYDEN CARRILLO MD) Departure Departure: Referrals: SIN MEDELLIN DO (PCP) Dragon Disclaimer This chart was dictated in whole or in part using Voice Recognition software in a busy, high-work load, and often noisy Emergency Department environment. It may contain unintended and wholly unrecognized errors or omissions. (ELIEL MATHEW MD) KAYDEN CARRILLO MD Jun 29, 2021 08:06 ELIEL MATHEW MD Jun 30, 2021 21:07
--- NOTE | 2021-06-29 08:19 | RAD ---
EXAM: Chest, single view. HISTORY: Pneumonia. COMPARISON: 06/07/2020 FINDINGS: A frontal view of the chest is obtained. There has been interval increase in right lower lo be infiltrate. There is stable left lower lobe infiltrate and bilateral upper lobe linear atelectasis . There is cardiomegaly. There is a suspected small left pleural effusion. There is no pneumothorax. IMPRESSION: 1. Stable left and increased right lower lobe interstitial infiltrate. 2. Stable suspected small left pleural effusion. Electronically signed by: Prisca Pena MD (06/29/2021 8:17 AM) [id number]
[2021-06-29 08:21] LABS: BASO # 0.1 x10^3/uL (0.0-0.2); BASO % 1 % (0-3); EOS % 0 % (0-3); HEMATOCRIT 36.7 % (36.0-47.0); HEMOGLOBIN 11.7 g/dL (12.0-15.5); LYMPH # 0.9 x10^3/uL (1.0-4.8); LYMPH % 6 % (24-48); MEAN CORPUSCULAR HEMOGLOBIN 33 pg (25-35); MEAN CORPUSCULAR HGB CONC 32 g/dL (31-37); MEAN CORPUSCULAR VOLUME 103 fL (79-100); MONO # 0.9 x10^3/uL (0.0-1.1); MONO % 6 % (0-9); NEUT # 12.2 x10^3uL (1.8-7.7); NEUT % 86 % (31-73); PLATELET COUNT 202 x10^3/uL (140-400); RED BLOOD COUNT 3.56 x10^6/uL (3.50-5.40); WHITE BLOOD COUNT 14.2 x10^3/uL (4.0-11.0)
--- NOTE | 2021-06-29 08:21 | EKG ---
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
[2021-06-29 08:34] LABS: CALCIUM 9.6 mg/dL (8.5-10.1); CREATININE 1.6 mg/dL (0.6-1.0); GFR 31.3; POTASSIUM 4.1 mmol/L (3.5-5.1)
[2021-06-29 08:48] LABS: ALBUMIN 3.6 g/dL (3.4-5.0); ALBUMIN/GLOBULIN RATIO 0.9 (1.0-1.7); MAGNESIUM 2.1 mg/dL (1.8-2.4); PHOSPHORUS 3.8 mg/dL (2.6-4.7); TOTAL BILIRUBIN 0.7 mg/dL (0.2-1.0); TOTAL PROTEIN 7.5 g/dL (6.4-8.2)
[2021-06-29 08:49] LABS: INFLUENZA A PATIENT NEGATIVE (NEGATIVE); INFLUENZA B PATIENT NEGATIVE (NEGATIVE)
[2021-06-29] MEDS ORDERED: methylPREDNISolone SOD SUCC PF 125 MG/2 ML VIAL. IV ONE (09:45)
[2021-06-29] MEDS ORDERED: ACETAMINOPHEN 325 MG TABLET PO PRN (10:30)
[2021-06-29] MEDS ORDERED: ONDANSETRON PF 4 MG/2 ML VIAL. IVP PRN (10:30)
[2021-06-29] MEDS ORDERED: IPRATRPIUM/ALBUTEROL 0.5/2.5MG 3 ML NEBU. NEB ONE ×2 (11:00→12:30)
[2021-06-29] MEDS: IPRATRPIUM/ALBUTEROL 0.5/2.5MG 3 ML NEBU. NEB SCH ×3 (11:01→22:15)
[2021-06-29] MEDS ORDERED: ATROPINE 0.5 MG/5 ML DISP.SYRIN. IV PRN (14:45)
[2021-06-29] MEDS ORDERED: IV NORMAL SALINE 500ML 500 ML IV PRN (14:45)
[2021-06-29] MEDS: DEXMEDETOMIDINE 400 MCG in IV NORMAL SALINE 100ML 96 ML IV PRN (15:27)
[2021-06-29] MEDS ORDERED: IPRATRPIUM/ALBUTEROL 0.5/2.5MG 3 ML NEBU. NEB PRN (16:15)
[2021-06-29] MEDS ORDERED: FUROSEMIDE 40 MG TABLET PO ONE (18:00)
[2021-06-29] MEDS ORDERED: FAMOTIDINE 20 MG/2 ML VIAL IVP ONE (18:00)
[2021-06-29] MEDS ORDERED: methylPREDNISolone SOD SUCC PF 125 MG/2 ML VIAL. IV SCH (18:00)
[2021-06-29] MEDS ORDERED: busPIRone 5 MG TABLET. PO ONE (18:00)
[2021-06-29 22:46] LABS: BACTERIA,URINE FEW /HPF (0-FEW); BILIRUBIN,URINE NEG (NEG); CLARITY,URINE CLEAR; COLOR,URINE YELLOW; GLUCOSE,URINE NEG (NEG); NITRITE,URINE NEG (NEG); RBC,URINE 0 /HPF (0-2); SQUAMOUS EPITHELIAL CELL,UR FEW /LPF; UROBILINOGEN,URINE 0.2 mg/dL (0.2 mg/dL); WBC,URINE OCC /HPF (0-4)
[2021-06-30] MEDS: APIXABAN 5 MG TABLET. PO SCH ×3 (00:40→21:18)
[2021-06-30] MEDS: IPRATRPIUM/ALBUTEROL 0.5/2.5MG 3 ML NEBU. NEB SCH ×2 (05:55→11:08)
[2021-06-30 05:57] LABS: BASO % 0 % (0-3); EOS % 0 % (0-3); HEMATOCRIT 33.7 % (36.0-47.0); HEMOGLOBIN 11.1 g/dL (12.0-15.5); LYMPH # 0.3 x10^3/uL (1.0-4.8); LYMPH % 2 % (24-48); MEAN CORPUSCULAR HEMOGLOBIN 33 pg (25-35); MEAN CORPUSCULAR HGB CONC 33 g/dL (31-37); MEAN CORPUSCULAR VOLUME 100 fL (79-100); MONO # 0.2 x10^3/uL (0.0-1.1); MONO % 1 % (0-9); NEUT # 12.5 x10^3uL (1.8-7.7); NEUT % 96 % (31-73); PLATELET COUNT 203 x10^3/uL (140-400); RED BLOOD COUNT 3.35 x10^6/uL (3.50-5.40); RED CELL DISTRIBUTION WIDTH 15.4 % (11.5-14.5)
[2021-06-30] MEDS: DEXMEDETOMIDINE 400 MCG in IV NORMAL SALINE 100ML 96 ML IV PRN ×2 (07:36→12:29)
[2021-06-30] MEDS: AMIODARONE HCL 200 MG TABLET. PO SCH (09:00)
--- NOTE | 2021-06-30 18:09 | RAD ---
INDICATION: Reason: pna / Spl. Instructions: / History: COMPARISON: One day prior FINDINGS: Single view of chest obtained. Cardiac mediastinal silhouette is enlarged with tortuous aortic contour. Linear opacity in the right midlung as well as focal opacity at the left lung base is again seen. Dec reased opacity at the right lung base compared to prior IMPRESSION: * Repeat demonstration of focal opacity at the left lung base as well as right midlung with some dec rease in pulmonic opacity at the right lung base compared to prior. There is also possible small pleu ral effusion on the left again seen. * Enlarged cardiomediastinal silhouette with tortuous aortic contour. Electronically signed by: Vincent Luis MD (06/30/2021 6:07 PM) [id number]
--- NOTE | 2021-07-01 07:31 | RAD ---
XR CHEST 1V Clinical Indication: Reason: continued shob Comparison: AP chest, prior day. Findings: There is stable cardiac enlargement. Left worse than right basilar airspace opacities have increased. There is unchanged linear opacity right midlung. There is unchanged probable small left pleural effu cecil. There is no pneumothorax. Bones appear stable. IMPRESSION: 1. Left greater than right basilar airspace opacities have increased. 2. Unchanged probable small left pleural effusion. Electronically signed by: Maximus Barahona MD (07/01/2021 7:28 AM) [facility]
[2021-07-01] MEDS: AMIODARONE HCL 200 MG TABLET. PO SCH (09:00)
[2021-07-01] MEDS: DEXMEDETOMIDINE 400 MCG in IV NORMAL SALINE 100ML 96 ML IV PRN (10:03)
[2021-07-01] MEDS ORDERED: FUROSEMIDE 40 MG/4 ML VIAL IVP ONE (10:45)
[2021-07-01] MEDS ORDERED: NYSTATIN TOPICAL POWDER 15GM BOTTLE. TP ONE (10:45)
[2021-07-01] MEDS: APIXABAN 5 MG TABLET. PO SCH ×2 (11:49→21:00)
[2021-07-02] MEDS: DEXMEDETOMIDINE 400 MCG in IV NORMAL SALINE 100ML 96 ML IV PRN (02:27)
--- NOTE | 2021-07-02 06:19 | RAD ---
AP chest x-ray HISTORY: Shortness of breath. COMPARISON: Chest x-ray August 12, 2020 FINDINGS: Mild cardiomegaly is grossly stable. Mediastinal silhouette is normal. No pneumothorax. No pleural effusions. Linear atelectasis/scarring right midlung. Heterogeneous opacities lower lobes aga in demonstrated may be mildly decreased in density since the prior exam. IMPRESSION: Mild decreased density of the lower lobe pulmonary opacities since the prior exam. Mild c ardiomegaly is stable. Electronically signed by: Braeden Eagle MD (07/02/2021 6:17 AM) [facility]
[2021-07-02 09:01] LABS: BASO % 0 % (0-3); EOS # 0.1 x10^3/uL (0.0-0.7); EOS % 1 % (0-3); HEMATOCRIT 34.7 % (36.0-47.0); HEMOGLOBIN 11.3 g/dL (12.0-15.5); LYMPH # 0.9 x10^3/uL (1.0-4.8); LYMPH % 10 % (24-48); MEAN CORPUSCULAR HEMOGLOBIN 33 pg (25-35); MEAN CORPUSCULAR HGB CONC 33 g/dL (31-37); MEAN CORPUSCULAR VOLUME 101 fL (79-100); MONO % 11 % (0-9); NEUT # 7.6 x10^3uL (1.8-7.7); NEUT % 79 % (31-73); PLATELET COUNT 184 x10^3/uL (140-400); RED BLOOD COUNT 3.42 x10^6/uL (3.50-5.40); RED CELL DISTRIBUTION WIDTH 14.2 % (11.5-14.5); WHITE BLOOD COUNT 9.6 x10^3/uL (4.0-11.0)
[2021-07-02 09:04] LABS: CALCIUM 8.9 mg/dL (8.5-10.1); CREATININE 1.5 mg/dL (0.6-1.0); GFR 33.8; POTASSIUM 3.4 mmol/L (3.5-5.1)
[2021-07-02] MEDS ORDERED: LORazepam 1 MG TABLET PO ONE (11:30)
[2021-07-02] MEDS: AMIODARONE HCL 200 MG TABLET. PO SCH (11:33)
[2021-07-02] MEDS: APIXABAN 5 MG TABLET. PO SCH ×2 (11:37→21:41)
[2021-07-03] MEDS ORDERED: LORazepam 1 MG TABLET ONE (04:08)
[2021-07-03] MEDS ORDERED: LORazepam 1 MG TABLET PO ONE (04:15)
[2021-07-03] MEDS ORDERED: APIXABAN 5 MG TABLET. ONE (08:23)
[2021-07-03] MEDS: AMIODARONE HCL 200 MG TABLET. PO SCH (08:25)
[2021-07-03] MEDS: APIXABAN 5 MG TABLET. PO SCH ×2 (08:26→21:37)
[2021-07-03 16:53] VITALS: BP 119/72
[2021-07-03] MEDS ORDERED: AMIO200T54 PO (16:59)
[2021-07-03] MEDS ORDERED: FERR325T14 PO (17:05)
[2021-07-03] MEDS ORDERED: TRIA1TAB3 PO (17:05)
[2021-07-03] MEDS ORDERED: DILT240T8 PO (17:05)
[2021-07-03] MEDS ORDERED: FURO80TA3 PO (17:05)
[2021-07-03] MEDS ORDERED: FAMO20TA5 PO (17:05)
[2021-07-03] MEDS ORDERED: ATOR10TA60 PO (17:05)
[2021-07-03] MEDS ORDERED: POTA20TA4 PO (17:05)
[2021-07-03] MEDS ORDERED: APIX2.5T PO (17:05)
[2021-07-03] MEDS ORDERED: MELA5TAB20 PO (18:15)
[2021-07-03] MEDS ORDERED: OXYC-314 PO (18:15)
[2021-07-03] MEDS ORDERED: BUSP10TA PO (18:15)
[2021-07-03] MEDS: FUROSEMIDE 100 MG/10 ML VIAL IVP SCH (19:51)
[2021-07-03 20:06] VITALS: BP 130/75
[2021-07-03] MEDS: LACTOBACILLUS RHAMNOSUS GG 1 CAPSULE. PO SCH (21:37)
[2021-07-03 22:20] VITALS: BP 91/58
[2021-07-04 05:10] VITALS: BP 100/56
[2021-07-04 06:26] LABS: BASO % 0 % (0-3); EOS % 0 % (0-3); HEMATOCRIT 36.3 % (36.0-47.0); HEMOGLOBIN 11.4 g/dL (12.0-15.5); LYMPH # 0.4 x10^3/uL (1.0-4.8); LYMPH % 3 % (24-48); MEAN CORPUSCULAR HEMOGLOBIN 33 pg (25-35); MEAN CORPUSCULAR HGB CONC 31 g/dL (31-37); MEAN CORPUSCULAR VOLUME 104 fL (79-100); MONO # 1.3 x10^3/uL (0.0-1.1); MONO % 10 % (0-9); NEUT # 12.2 x10^3uL (1.8-7.7); NEUT % 87 % (31-73); PLATELET COUNT 210 x10^3/uL (140-400); RED BLOOD COUNT 3.49 x10^6/uL (3.50-5.40); RED CELL DISTRIBUTION WIDTH 14.4 % (11.5-14.5)
[2021-07-04 06:33] LABS: ALBUMIN 2.8 g/dL (3.4-5.0); ALBUMIN/GLOBULIN RATIO 0.7 (1.0-1.7); CALCIUM 8.9 mg/dL (8.5-10.1); CREATININE 1.6 mg/dL (0.6-1.0); GFR 31.3; POTASSIUM 4.1 mmol/L (3.5-5.1); TOTAL BILIRUBIN 0.5 mg/dL (0.2-1.0); TOTAL PROTEIN 6.9 g/dL (6.4-8.2)
[2021-07-04] MEDS: LACTOBACILLUS RHAMNOSUS GG 1 CAPSULE. PO SCH (08:38)
[2021-07-04] MEDS: FUROSEMIDE 100 MG/10 ML VIAL IVP SCH (08:40)
--- NOTE | 2021-07-04 08:40 | PN ---
DATE: 07/04/2021 ATTENDING PHYSICIAN: Dr. Coronado. SUBJECTIVE: The patient is obtunded and she had to be given meds to calm her down because she was agitated last night. OBJECTIVE FINDINGS: VITAL SIGNS: Blood pressure this morning is 100/56, pulse is 95 and regular, temperature 98.4 degrees Fahrenheit, oxygen saturation 93% on 6 liters by nasal cannula. HEENT: Head is without trauma. Pupils are reactive. Oropharynx is clear. NECK: Supple. No stridor. LUNGS: Shallow respirations. CARDIOVASCULAR: Regular heart tones. ABDOMEN: Soft. EXTREMITIES: Show 2+ pitting edema. There is stasis dermatitis. NEUROLOGIC FUNCTION: Obtunded. She is sleeping and had to be sedated last night. SKIN: Warm and dry. LABORATORY STUDIES: Hemoglobin is 11.4 g/dL, white count 14,000. Chemistry panel: Sodium is 142 mEq, potassium 4.1 mEq, creatinine is stable 1.6 mg/dL. Nonfasting blood sugar 152. Cardiac enzymes are negative for coronary ischemia. ASSESSMENT: 1. A 76-year-old female with acute on chronic respiratory failure. 2. Exacerbation of chronic obstructive pulmonary disease. 3. Component of congestive heart failure. 4. Cardiac arrhythmias, stable. 5. Profound dementia, requiring sedation for agitation. 6. Generalized debilitation. The patient is bedridden. PLAN: 1. Continue supportive care. 2. Diuretics as ordered. 3. We are weaning down supplemental oxygen. 4. She is now a DNR per advanced directives. We will try to contact the family to see what their wishes are. JORDAN DR: Dianne TID: [id number]
[2021-07-04] MEDS: AMIODARONE HCL 200 MG TABLET. PO SCH (08:49)
[2021-07-04] MEDS ORDERED: APIXABAN 2.5 MG TABLET PO SCH (09:00)
[2021-07-04] MEDS ORDERED: AMIODARONE HCL 200 MG TABLET. PO SCH (09:00)
[2021-07-04] MEDS ORDERED: DILTIAZEM HCL PO SCH (09:00)
--- NOTE | 2021-07-04 09:08 | HP ---
DATE OF SERVICE: 07/03/2021 ADMIT DATE: 06/29/2021 ATTENDING PHYSICIAN: Dr. Coronado. CHIEF COMPLAINT: Shortness of breath. HISTORY OF PRESENT ILLNESS: The patient is a 76-year-old female who initially was admitted to the ED from the senior care on the evening of 06/29/2021. She was found to be in respiratory failure, requiring BiPAP. She had a component of heart failure. She has been fully vaccinated against COVID-19. She was COVID negative. She had a left pleural effusion as well as a slight right lower lobe interstitial infiltrate consistent with heart failure. She was initiated on BiPAP because of confusion and underlying dementia. Precedex was given along with Ativan to help calm her down. They were arranging for a bed to admit her. She is a FULL CODE. They came close to intubating her, but they were able to manage with BiPAP. Our ICU was full and unfortunately, she has been here in the ED for the holiday weekend. I have checked on her intermittently. She is doing a little better. When I went to see her today, she is down to 6 liters of supplemental oxygen by nasal cannula, maintaining adequate saturations. Her skin is warm and dry. Blood pressure stable. Heart rate is about 90 and regular. She is ready to be admitted to the floor on telemetry. I think this is a best way to get her out of the ED where she has been cared for for the last 4 days. PAST MEDICAL HISTORY: Significant for advanced COPD, obesity, hypertension, degenerative arthritis. She has had a and a hysterectomy, cataract surgery and a left elbow repair. I do not have any history of heart disease at this time. SOCIAL HISTORY: She was a smoker up to about a year ago. She has been in a senior care. FAMILY HISTORY: Unobtainable due to the patient's confusion. REVIEW OF SYSTEMS: Unobtainable. CURRENT MEDICINES: Reviewed. I see that she has been on Eliquis, amiodarone and a beta von. Exact dosages and other medications are in the process of being determined. I do not have the senior care paperwork at this time. ALLERGIES: She has no known drug allergies. PHYSICAL EXAMINATION: GENERAL: When I saw her, this is a confused elderly female who is bedridden. VITAL SIGNS: This morning showed a blood pressure of 155/81, pulse is 84 and regular, respirations 30 and mildly labored, pulse ox was 100% on 5 liters by nasal cannula. HEENT: Head is without trauma. Pupils are reactive. Sclerae nonicteric. Oropharynx is clear. NECK: Supple. LUNGS: Shallow respirations with minimal rhonchi at bases. CARDIOVASCULAR: Showed regular heart tones. ABDOMEN: Obese, protuberant. No organomegaly. Bowel sounds are hypoactive. EXTREMITIES: Show 2+ pitting edema. She is nonambulatory. NEUROLOGIC: She is not aware of person or time. She is confused and rambling. PERTINENT LABORATORY AND X-RAY DATA: Chest x-ray showed cardiomegaly, COPD changes, diffuse infiltrates identified in the bases with small pleural effusion, interstitial edema. Hemoglobin yesterday was 11.3 g/dL, white count down to 9600. Serology negative for coronavirus and negative for influenza A and B. Sodium was 143 mEq, potassium 3.4, creatinine of 1.5 mg/dL. Cardiac enzymes negative for coronary ischemia. ASSESSMENT: 1. A 76-year-old female with acute on chronic respiratory failure. 2. Exacerbation of chronic obstructive pulmonary disease. 3. Congestive heart failure component. 4. Underlying dementia. 5. Essential hypertension. PLAN: 1. Admit to the telemetry unit. She was unstable initially, but has gotten better during the last 48 hours in the ED. I think we can manage her on telemetry. 2. Wean down supplemental oxygen. She is down to 5 liters by nasal cannula. 3. I shall ascertain her code status. Once again, no family is here. JINA/PRAVEEN/PATRICA DR: JINA/wallace TID: [id number]
[2021-07-04 10:15] VITALS: BP 107/71
[2021-07-04 13:20] LABS: BGAS PH 7.02 (7.35-7.45); BGAS PO2 71 mmHg (71-100); FIO2 44 %
[2021-07-04 14:17] VITALS: BP 95/63
--- NOTE | 2021-07-05 02:47 | DS ---
DATE OF DISCHARGE: 07/04/2021 ATTENDING PHYSICIAN: Dr. Coronado. Date of admission to the hospital was 06/29/2021, date of admission to the medical floor was 07/03/2021, and date of expiration was 07/04/2021. FINAL DISCHARGE DIAGNOSES AND CAUSE OF : 1. Acute respiratory failure with hypoxemia. 2. Respiratory failure with hypercarbia. 3. Advanced chronic obstructive pulmonary disease. 4. Congestive heart failure. 5. Pleural effusions. 6. Paroxysmal atrial fibrillation. 7. Dementia. 8. Metabolic encephalopathy. 9. Generalized debilitation. HISTORY AND PHYSICAL: The patient was a 76-year-old female admitted from the group home. She had acute respiratory failure, cardiac arrhythmias, and required BiPAP therapy. Because of the lack of hospital beds and ICU beds over the holiday, she was actually in the ED for 4 nights, being managed by the Emergency Room. We finally admitted her to the floor on the afternoon of 07/03. The patient had significant respiratory distress. She was able to wean off of her BiPAP but continued to need supplemental oxygen. Chest x-ray demonstrated COPD changes and pleural effusions. She was given diuretics. The family was made aware of her clinical state. Eventually, we had hospice come by and see her for comfort measures. She was made a hospice patient on 07/04. Later shortly thereafter on the evening of 07/04, the patient succumbed to her illness. Family was notified. [place] [facility] [place] Please refer to the extensive database for her lab work. JAMAR/RON DR: Dianne TID: [id number]
[2021-07-10 07:13] LABS: BGAS PCO2 > 130 mmHg (35-45)
== END 2021-07-04 15:49 | disposition hospice, inpatient (51) | DRG 177 ==
LOC: ER 07:49 → ER HOLD 10:29 → 1 SOUTH 07-03 13:32 → ER 07-03 15:00
PROVIDERS: ADMIT Hospitalist; ATTEND Internal Medicine
PROC: 5A0935A Assistance with Respiratory Ventilation, Less than 24 Consecutive Hours, High Flow/Velocity Cannula (ICD-10-PCS; principal; 2021-06-29)
PROC: 5A09457 Assistance with Respiratory Ventilation, 24-96 Consecutive Hours, Continuous Positive Airway Pressure (ICD-10-PCS; 2021-06-29)
PROC: 5A0935A Assistance with Respiratory Ventilation, Less than 24 Consecutive Hours, High Flow/Velocity Cannula (ICD-10-PCS; 2021-07-03)
DX: J69.0 Pneumonitis due to inhalation of food and vomit (principal); J96.21 Acute and chronic respiratory failure with hypoxia; J96.22 Acute and chronic respiratory failure with hypercapnia; G93.41 Metabolic encephalopathy; I50.21 Acute systolic (congestive) heart failure; J90 Pleural effusion, not elsewhere classified; Z68.41 Body mass index [BMI] 40.0-44.9, adult; J44.1 Chronic obstructive pulmonary disease with (acute) exacerbation; F03.90 Unspecified dementia, unspecified severity, without behavioral disturbance, psychotic disturbance, mood disturbance, and anxiety; F40.240 Claustrophobia; Z74.01 Bed confinement status; E66.9 Obesity, unspecified; M19.90 Unspecified osteoarthritis, unspecified site; I48.0 Paroxysmal atrial fibrillation; Z79.01 Long term (current) use of anticoagulants; K21.9 Gastro-esophageal reflux disease without esophagitis; Z20.822 Contact with and (suspected) exposure to COVID-19; Z66 Do not resuscitate; I87.2 Venous insufficiency (chronic) (peripheral)
CPT/HCPCS: 36415; 71045; 80048; 80053; 81001; 82803; 83605; 83735; 83880; 84100; 84484; 85025; 85610; 87040; 87086; 87426; 87804; 93005; 94640; 94660; 96365; 96367; 96368; 96375; 96376; J0696; J1956; J2060; J2930; J3010; J3490; U0003; 99285-25

== ENCOUNTER 2021-07-04 13:55 | Inpatient (IN) | payer OTHER ==
[~2021-07-04 13:55] MED LIST changes: +AMIO200T54 PO; +APIX2.5T PO; +ATOR10TA60 PO; +BUSP10TA PO; +DILT240T8 PO; +FAMO20TA5 PO; +FERR325T14 PO; +FURO80TA3 PO; +MELA5TAB20 PO; +OXYC-314 PO; +POTA20TA4 PO; +TRIA1TAB3 PO
[2021-07-04 14:17] VITALS: BP 95/63
[2021-07-04] MEDS ORDERED: MORPHINE SULFATE 30 MG/30 ML 30 ML IV SCH (17:30)
[2021-07-04] MEDS ORDERED: ATROPINE 1% OPHTH SOLUTION 5ML BOTTLE. SL PRN (17:30)
--- NOTE | 2021-07-04 22:50 | NUR ---
PT PRONOUNCED AT 1957 W/ DPOA AT BEDSIDE. DR. CONTRERAS AND PONCHO NURSE NOTIFED AT 2004. PT BELONGINGS SENT HOME W/ DPOA ZORAN. BODY RELEASED TO [facility] AT 2250.
== END 2021-07-04 22:54 | DRG 189 ==
LOC: 1 SOUTH 13:55
PROVIDERS: ADMIT Hospitalist; ATTEND Hospitalist
DX: J96.21 Acute and chronic respiratory failure with hypoxia (principal); J44.1 Chronic obstructive pulmonary disease with (acute) exacerbation; F03.90 Unspecified dementia, unspecified severity, without behavioral disturbance, psychotic disturbance, mood disturbance, and anxiety; I11.0 Hypertensive heart disease with heart failure; I50.9 Heart failure, unspecified; Z90.710 Acquired absence of both cervix and uterus; F17.210 Nicotine dependence, cigarettes, uncomplicated
CPT/HCPCS: J2270; Q5005